=== PATIENT | female | born 1980 | race Caucasian/White ===

== ENCOUNTER 2022-05-29 14:47 | Inpatient (IN) | payer OTHER ==
[2022-05-29] MEDS ORDERED: Bupivacaine/Epinephrine 0.25% 30 ML VIAL ONE (16:11)
[2022-05-29] MEDS ORDERED: Lidocaine 2% MPF 10 ML AMP (For Epidural Use) ONE (16:11)
[2022-05-29] MEDS ORDERED: Ibuprofen 800 MG TAB PO PRN (16:35)
[2022-05-29] MEDS ORDERED: hydrALAZINE 20 MG/ML VIAL SLOW IVP PRN ×2 (16:35)
[2022-05-29] MEDS ORDERED: Calcium Gluc 4.6 MEQ/10 ML (100 MG/ML) SLOW IVP PRN (16:35)
[2022-05-29] MEDS ORDERED: Promethazine HCl 25 MG/ML VIAL IM PRN ×2 (16:35→20:50)
[2022-05-29] MEDS ORDERED: Butorphanol Tartrate 1 MG/ML VIAL SLOW IVP PRN (16:35)
[2022-05-29] MEDS ORDERED: Lidocaine 1% (PF) 30 ML VIAL SC PRN (16:35)
[2022-05-29] MEDS ORDERED: Labetalol HCl 100 MG/20 ML VIAL SLOW IVP PRN ×2 (16:35)
[2022-05-29] MEDS ORDERED: Lorazepam 2 MG/ML VIAL SLOW IVP PRN (16:35)
[2022-05-29] MEDS ORDERED: Ondansetron PF 4 MG/2 ML Vial IVP PRN ×2 (16:35→20:50)
[2022-05-29] MEDS ORDERED: HYDROcodone/Acetaminophen 5/325 mg Tablet PO PRN ×2 (16:35)
[2022-05-29 16:40] VITALS: BMI 28.1
[2022-05-29] MEDS ORDERED: Magnesium Sulfate 20 gm/500 ml 4 GM/100 ML BAG IVPB SCH (16:45)
[2022-05-29] MEDS ORDERED: NS w/ Oxytocin 30 units 500 ML IV SCH (16:45)
[2022-05-29] MEDS: Magnesium Sulfate 20 gm/500 ml 20 GM/500 ML BAG IVPB SCH (17:43)
[2022-05-29 17:45] LABS: Hemoglobin 14.8 g/dL (12.0-15.5); Mean Corpuscular HGB CONC 35.4 g/dL (32.0-36.0); Mean Corpuscular Hemoglobin 32.4 pg (27.0-33.0); Mean Corpuscular Volume 91.5 fl (81.6-98.3); Mean Platelet Volume 12.6 fl (7.4-10.4); Platelet Count 137 10x3/uL (150-450); RBC Distribution Width 12.3 % (11.5-14.5); Red Blood Cell (RBC) Count 4.57 10x6/uL (3.90-5.03); White Blood Cell (WBC) Count 14.6 10x3/uL (3.5-10.5)
[2022-05-29 17:55] LABS: ALT (SGPT) 39 U/L (8-55); AST (SGOT) 30 U/L (5-34); Albumin 3.9 g/dL (3.5-5.0); Alkaline Phosphatase 193 U/L (40-110); Anion Gap 16 mmol/L (10-20); BUN (Urea Nitrogen) 7 mg/dL (7.0-18.7); Bilirubin, Total 0.6 mg/dL (0.2-1.2); Calc. Creatinine Clearance 136 mL/min (70-130); Calcium 9.1 mg/dL (7.8-10.44); Carbon Dioxide 19 mmol/L (22-29); Chloride 102 mmol/L (98-107); Estimated GFR 115; Globulin 2.8 g/dL (2.4-3.5); Glucose 78 mg/dL (70-105); Potassium 4.2 mmol/L (3.5-5.1); Protein, Total 6.7 g/dL (6.0-8.3); Sodium 133 mmol/L (136-145)
[2022-05-29 18:14] LABS: Syphilis Antibody Nonreactive (Nonreactive); Syphilis Antibody Index 0.03 S/CO (<1.00 Non-Reactive)
[2022-05-29 18:15] LABS: HBSAg Index 0.19 S/CO (0-0.99); Hep B Surf Ag Non-Reactive S/CO (NonReactive)
[2022-05-29] MEDS ORDERED: Fentanyl 2 mcg/Bup 0.1% Cadd 100 ML ONE (20:14)
[2022-05-29] MEDS: Fentanyl 2 mcg/Bupivacaine 0.1% Cassette 100 ML EPIDURAL SCH (20:30)
[2022-05-29] MEDS ORDERED: Acetaminophen 325 MG TAB PO PRN (20:50)
[2022-05-29] MEDS ORDERED: Naloxone HCl 0.4 mg/ml Vial IVP PRN ×2 (20:50)
[2022-05-29] MEDS ORDERED: ePHEDrine Sulfate 50 MG/10 ML VIAL SLOW IVP PRN (20:50)
[2022-05-29] MEDS ORDERED: Lactated Ringer's 500 ML IV PRN (20:50)
[2022-05-29] MEDS ORDERED: Moisturizing Cream (Eucerin) 113 GM JAR TOP PRN (20:50)
[2022-05-29] MEDS ORDERED: diphenhydrAMINE 50 MG/ML VIAL IVP PRN (20:50)
[2022-05-29] MEDS ORDERED: Communication Order-Pharmacy FS SCH (21:00)
[2022-05-29 22:55] LABS: SARS-CoV-2 NAA Rapid Test Not Detected (NotDetected)
[2022-05-30] MEDS: Magnesium Sulfate 20 gm/500 ml 20 GM/500 ML BAG IVPB SCH ×3 (02:37→23:12)
[2022-05-30] MEDS: Fentanyl 2 mcg/Bupivacaine 0.1% Cassette 100 ML EPIDURAL SCH ×2 (05:00→11:41)
[2022-05-30] MEDS ORDERED: Calcium Carbonate 500 MG ChewTAB PO PRN (09:20)
[2022-05-30] MEDS ORDERED: Famotidine/PF 20 mg/2ml Vial SLOW IVP PRN (13:02)
[2022-05-30] MEDS ORDERED: Bicitra 30 ML UDCUP PO PRN (13:02)
[2022-05-30] MEDS ORDERED: Azithromycin 500 MG in Sodium Chloride 0.9% 250 ML 250 ML IVPB SCH (13:15)
[2022-05-30] MEDS ORDERED: CEFAZOLIN 2 GM in Sodium Chloride 0.9% 100 ML IVPB SCH (13:15)
[2022-05-30] MEDS ORDERED: Carboprost 250 MCG/ML AMP ONE (13:45)
[2022-05-30] MEDS ORDERED: Tranexamic Acid 1,000 MG/10 ML VIAL ONE ×2 (13:46→14:45)
[2022-05-30] MEDS ORDERED: Misoprostol 200 MCG TAB ONE (13:46)
[2022-05-30] MEDS ORDERED: Fentanyl 100 MCG/2 ML VIAL ONE (13:54)
[2022-05-30] MEDS ORDERED: Morphine PF 10 MG/10 ML VIAL ONE (13:54)
[2022-05-30] MEDS ORDERED: Ondansetron PF 4 MG/2 ML Vial ONE ×2 (13:55→14:45)
[2022-05-30] MEDS ORDERED: Dexamethasone 4 mg/ml Vial ONE ×2 (13:55→14:45)
[2022-05-30] MEDS ORDERED: Oxytocin 10 UNITS/ML VIAL ONE (13:56)
[2022-05-30] MEDS ORDERED: Diphenoxylate HCl/Atropine Tablet PO PRN (15:31)
[2022-05-30] MEDS: Lactated Ringer's 1,000 ML IV SCH (23:12)
[2022-05-31] MEDS: Lactated Ringer's 1,000 ML IV SCH ×3 (12:08→22:01)
[2022-05-31] MEDS ORDERED: Magnesium Sulfate 20 gm/500 ml 20 GM/500 ML BAG IVPB SCH (12:11)
[2022-05-31] MEDS ORDERED: Calcium Gluc 4.6 MEQ/10 ML (100 MG/ML) SLOW IVP PRN (12:11)
[2022-05-31] MEDS ORDERED: Misoprostol 200 MCG TAB PR PRN (12:11)
[2022-05-31] MEDS ORDERED: hydrALAZINE 20 MG/ML VIAL SLOW IVP PRN (12:11)
[2022-05-31] MEDS ORDERED: Ondansetron PF 4 MG/2 ML Vial IVP PRN (12:11)
[2022-05-31] MEDS ORDERED: HYDROcodone/Acetaminophen 5/325 mg Tablet PO PRN ×2 (12:11)
[2022-05-31] MEDS ORDERED: NS w/ Oxytocin 30 units 500 ML IV SCH (12:11)
[2022-05-31] MEDS ORDERED: Lorazepam 2 MG/ML VIAL SLOW IVP PRN (12:11)
[2022-05-31] MEDS ORDERED: Lanolin Ointment 7 GM TUBE TOP PRN (12:11)
[2022-05-31] MEDS ORDERED: Simethicone Chewable 80 MG TAB PO PRN (12:11)
[2022-05-31] MEDS ORDERED: Boostrix 0.5 ML (Tdap) VIAL (>/=7 yrs of age) IM ONE (12:11)
[2022-05-31] MEDS ORDERED: Prenatal Vitamin 1 TAB PO SCH (12:30)
[2022-05-31] MEDS ORDERED: Ferrous Sulfate 325 MG TAB PO SCH (12:30)
[2022-05-31] MEDS ORDERED: Docusate 100 MG CAP PO SCH (12:30)
[2022-05-31] MEDS: Ibuprofen 800 MG TAB PO SCH ×2 (17:06→21:58)
[2022-05-31] MEDS: Ferrous Sulfate 325 MG TAB PO SCH (21:58)
[2022-05-31] MEDS: Docusate 100 MG CAP PO SCH (21:58)
[2022-06-01 04:29] LABS: Hemoglobin 9.4 g/dL (12.0-15.5); Mean Corpuscular HGB CONC 34.1 g/dL (32.0-36.0); Mean Corpuscular Hemoglobin 32.1 pg (27.0-33.0); Mean Corpuscular Volume 94.2 fl (81.6-98.3); Platelet Count 168 10x3/uL (150-450); RBC Distribution Width 13.2 % (11.5-14.5); Red Blood Cell (RBC) Count 2.93 10x6/uL (3.90-5.03); White Blood Cell (WBC) Count 10.7 10x3/uL (3.5-10.5)
[2022-06-01] MEDS: Ibuprofen 800 MG TAB PO SCH ×2 (05:20→13:23)
[2022-06-01] MEDS: Docusate 100 MG CAP PO SCH (08:07)
[2022-06-01] MEDS: Ferrous Sulfate 325 MG TAB PO SCH (08:08)
[2022-06-01] MEDS ORDERED: Prenatal Vitamin 1 TAB PO SCH (09:00)
[2022-06-01 12:11] VITALS: BP 145/74; TEMP 98.5
== END 2022-06-01 17:05 | disposition home or self-care (01) | DRG 807 ==
LOC: CSHLD/OP 14:47 → CSHLD 21:08 → CSHPP 05-31 15:58
PROVIDERS: ADMIT Obstetrics & Gynecology; ATTEND Obstetrics & Gynecology
PROC: 10E0XZZ Delivery of Products of Conception, External Approach (ICD-10-PCS; principal; 2022-05-30)
PROC: 10H07YZ Insertion of Other Device into Products of Conception, Via Natural or Artificial Opening (ICD-10-PCS; 2022-05-30)
DX: O14.14 Severe pre-eclampsia complicating childbirth (principal); Z37.0 Single live birth; O36.63X0 Maternal care for excessive fetal growth, third trimester, not applicable or unspecified; Z20.822 Contact with and (suspected) exposure to COVID-19; Z3A.41 41 weeks gestation of pregnancy; Z79.899 Other long term (current) drug therapy; Z90.49 Acquired absence of other specified parts of digestive tract; O48.0 Post-term pregnancy; O62.1 Secondary uterine inertia; O76 Abnormality in fetal heart rate and rhythm complicating labor and delivery; O32.4XX0 Maternal care for high head at term, not applicable or unspecified; O62.2 Other uterine inertia
CPT/HCPCS: 36415; 51702; 80053; 82570; 84156; 85027; 86780; 86850; 86900; 86901; 87340; 99285; J1100; J2274; J2405; J2590; J3010; J3475; J7120; U0002

== ENCOUNTER 2023-08-12 08:54 | Outpatient (CLI) | payer OTHER | END 2023-08-12 08:55 | disposition home or self-care (01) | LOC: CSHMAMMO 08:54 | PROVIDERS: ATTEND Student in an Organized Health Care Education/Training Program | DX: Z12.31 Encounter for screening mammogram for malignant neoplasm of breast (principal) | CPT/HCPCS: 77063; 77067 ==